=== PATIENT | male | born 1975 | race Caucasian/White ===

== ENCOUNTER 2018-02-26 14:32 | Emergency (ER) | payer BC, OTHER ==
[~2018-02-26] VITALS: Ht 185.4 cm; Wt 92.0 kg
[2018-02-26 14:38] VITALS: BP 129/64; TEMP 36.7; Ht 185.4 cm; Wt 92.0 kg
[2018-02-26 15:17] VITALS: PULSE 79; O2SAT 100
--- NOTE | 2018-02-26 15:44 | EMERGENCY ROOM VISIT NOTE ---
History First contact with patient: 14:41 Chief Complaint: LACERATION/CUT (NON-SUTURE) Stated Complaint: CUT BRIDGE OF NOSE MAY NEED STITCHES Nursing Triage Summary: PT WAS STRUCK BY EXERCISE BIN THAT HIT GLASSES, PT NOW HAS LAC BETWEEN EYES BLEEDING CONTROLLED History of Present Illness The patient is a 42 year old male who presents to the Emergency Room with complaints of a nose laceration. The patient reports that he was performing pull-ups when an exercise band broke and recoiled, slapping him across the bridge of the nose. The patient reports that his glasses were also bent. He denies any significant bleeding or pain, and currently rates his discomfort a 1 out of 10. Tetanus immunization is up-to-date. He denies any bleeding from the nose, blurred vision or headache. Review of Systems 6 system review was performed and was negative except for pertinent positives and negatives as indicated in history of present illness Past Medical/Surgical History Medical Problems: (1) Asthma (2) Bronchitis (3) Lymphedema of right lower extremity Surgical Problems: (1) No history of previous surgery Family History FH: cancer Social History Smoking Status: Never Smoker Alcohol Use: none Marital Status: Housing Status: lives with family Occupation Status: employed Current/Historical Medications No Active Prescriptions or Reported Meds Physical Exam Vital Signs Date Time Temp Pulse Resp B/P (MAP) Pulse Ox O2 Delivery O2 Flow Rate FiO2 02/26/18 15:17 79 12 100 02/26/18 14:38 36.7 82 16 129/64 99 Physical Exam CONSTITUTIONAL: Healthy and well nourished. Alert and oriented X 3 with positive affect. Patient does not appear in any acute distress. GCS 15. HEENT: Examination shows an 8 mm laceration across the bridge of the nose. No significant edema, deformity or active bleeding noted. Pupils equal, round and reactive. No subconjunctival hemorrhage, epistaxis or other facial wounds noted. NECK: Full active range of motion without discomfort. MUSCULOSKELETAL: Full range of motion of all joints without discomfort. INTEGUMENTARY: No rash or other significant dermatologic conditions noted. NEUROLOGIC: No focal neurologic deficits noted. Medical Decision & Procedures Procedure Dermabond laceration repair was performed after receiving verbal consent from the patient. The wound was initially cleansed with a mixture of hydrogen peroxide and normal saline. The wound was then thoroughly dried, then covered with Dermabond with excellent results. ED Course Patient history and physical exam were performed. Nurse's notes were reviewed. Vital signs were reviewed and were normal. Laceration repair was performed using Dermabond. I did discuss other treatment options, including suture repair and allowing the wound to heal by secondary intention. The patient agreed with Dermabond repair, which was successfully applied with excellent results. The patient was provided additional wound care instructions. He was instructed to watch for any signs of infection. Ice as needed for swelling, and ibuprofen or Tylenol if needed for additional pain relief. The patient was happy with plan of care, voiced understanding of all discharge instructions, and denied any significant pain at the time of discharge. Medical Decision Medication Reconcilliation Current Medication List: was personally reviewed by me Blood Pressure Screening Patient's blood pressure: Normal blood pressure Impression Primary Impression: Laceration of nose Departure Information Dispostion Home / Self-Care Condition FAIR Prescriptions No Active Prescriptions or Reported Meds Referrals Miguel Sotelo MD (PCP) No Doctor, Assigned Forms HOME CARE DOCUMENTATION FORM, IMPORTANT VISIT INFORMATION Patient Instructions My [facility], ED Laceration Facial Skin Glue Additional Instructions Read Dermabond handout. Do not apply any ointments to the glue. Intermittently apply ice as needed for swelling and discomfort. Ibuprofen or Tylenol as needed for pain. Watch for any signs of developing infection. Problem Qualifiers Primary Impression: Laceration of nose Encounter type: initial encounter Qualified Codes: S01.21XA - Laceration without foreign body of nose, initial encounter
== END 2018-02-26 15:19 | disposition home or self-care (01) ==
LOC: C.EDB 14:33 → C.EDD 15:19
DX: S01.21XA Laceration without foreign body of nose, initial encounter (principal); W22.8XXA Striking against or struck by other objects, initial encounter; Y93.B9 Activity, other involving muscle strengthening exercises